=== PATIENT | male | born 1935 | race Caucasian/White ===

== ENCOUNTER 2017-06-06 15:59 | Emergency (ER) | payer MEDICARE, BC ==
[~2017-06-06] VITALS: Ht 182.9 cm; Wt 77.2 kg
[~2017-06-06 15:59] MED LIST: AMLO2.5T OR; ANTI25TA2 PO; BENA10TA OR; OMEP20TA PO; SERT-132 OR; SIMV40TA OR; SYNT112T PO; [UNRECOGNIZED DRUG - CODE] OR
[2017-06-06 16:02] VITALS: BP 146/68; PULSE 62; RESP 18; TEMP 97.6; O2SAT 100
--- NOTE | 2017-06-06 16:45 | PD ---
Physical Exam Time Seen by Provider: 16:42 Narrative 81yo M sent by Urgent care with diagnosis of pneumonia. He had chest x-ray which concluded right midlung lateral lower lung field infiltrates seen and small left lower lung infiltrates. He was given Rocephin 1 g and abuse roll and Atrovent nebulizer treatments in the office, prior to arrival. Patient has been sick for 5-7 days. Denies fevers. Reports shortness of breath. Denies chest pain. Occasional cough. Patient seen in triage. VS reviewed. Awaiting bed placement. See next providers note for final patient disposition. Data Data Last Documented VS Vital Signs Date Time Temp Pulse Resp B/P (MAP) Pulse Ox O2 Delivery O2 Flow Rate FiO2 06/06/17 16:02 97.6 62 18 146/68 (94) 100 MDM Supervised Visit with KATHY: Janae Almeida Jun 06, 2017 16:45
[2017-06-06] MEDS ORDERED: PRED-503 PO (17:05)
[2017-06-06] MEDS ORDERED: VENTAER INH (17:05)
[2017-06-06] MEDS ORDERED: AUGM875T3 PO (17:05)
--- NOTE | 2017-06-06 17:06 | PD ---
HPI Chief Complaint: Respiratory Symptoms Time Seen by Provider: 16:42 Travel History International Travel<30 days: No Contact w/Intl Traveler<30days: No Traveled to known affect area: No History of Present Illness HPI I initially saw this patient in triage. 81yo M sent by Urgent care with diagnosis of pneumonia. He had chest x-ray which concluded right midlung lateral lower lung field infiltrates seen and small left lower lung infiltrates. He was given Rocephin 1 g and albuterol and Atrovent nebulizer treatments in the office, prior to arrival. Patient has been sick for 5-7 days. Denies fevers. Reports shortness of breath, which has resolved after the breathing treatments. Denies chest pain. Occasional cough. Breathing treatments relieved shortness of breath. No known aggravating factors. Symptoms are moderate in severity. Dr. treadwell is primary care provider. History of hypertension, hypercholesterolemia, hypothyroid, CVA. Takes Aggrenox. No known allergies. Has no other medical complaints. No other modifying factors or associated signs and symptoms. PFSH Past Medical History Hx Anticoagulant Therapy: Yes Blood Disorders: No Anxiety: No Depression: Yes Heart Rhythm Problems: No Cancer: No Cardiovascular Problems: Yes High Cholesterol: Yes Chest Pain: No Congestive Heart Failure: No Cerebrovascular Accident: Yes (1997) Diabetes: No Endocrine: Yes Genitourinary: No Hypertension: Yes Immune Disorder: No Psychiatric: Yes Respiratory: No Thyroid Disease: Yes Social History Alcohol Use: No Tobacco Use: No Substance Use: No Allergies-Medications (Allergen,Severity, Reaction): Coded Allergies: No Known Allergies (Unverified Adverse Reaction, Unknown, 06/06/17) Reported Meds & Prescriptions Reported Meds & Active Scripts Active Albuterol Neb (Albuterol Sulfate) 2.5 Mg/0.5 Ml Neb 2.5 Mg NEB Q4-6H PRN Note: The Albuterol Sulfate Inhalation Solution is concentrated and must be diluted. Read complete instructions carefully before using. Deltasone (Prednisone) 20 Mg Tab 40 Mg PO BID 5 Days Ventolin Hfa 18 GM Inh (Albuterol Sulfate) 90 Mcg/Act Aer 2 Puff INH Q4-6H PRN Augmentin (Amoxicillin-Clavulanate) 875-125 Mg Tab 1 Tab PO BID 10 Days Reported Benazepril (Benazepril HCl) 10 Mg Tab 10 Mg PO DAILY Aggrenox (Dipyridamole/Aspirin) 200-25 Mg Cap 1 Cap PO BID Amlodipine (Amlodipine Besylate) 2.5 Mg Tab 2.5 Mg PO DAILY Antivert (Meclizine HCl) 25 Mg Tab 25 Mg PO TID 7 Days Amlodipine Besylate 2.5 mg (Amlodipine Besylate) 2.5 Mg Tab 2.5 Mg OR DAILY Benazepril Hcl (Benazepril HCl) 10 Mg Tab 10 Mg OR DAILY Aggrenox (Dipyridamole/Aspirin) 1 Cap Cap 1 Cap OR BID Simvastatin 40 Mg Tab 40 Mg OR HS Sertraline 50 mg (Sertraline HCl) 50 Mg Tab 50 Mg OR DAILY Omeprazole 20 mg (Omeprazole) 20 Mg Tab 20 Mg PO DAILY Synthroid 112 mcg (Levothyroxine Sodium) 112 Mcg Tab 112 Mcg PO DAILY Review of Systems Except as stated in HPI: all other systems reviewed are Neg Physical Exam Narrative GENERAL: Well-nourished, well-developed elderly, male patient, in no acute distress; afebrile, nontoxic-appearing; very well appearing SKIN: Warm and dry. No rash. HEAD: Atraumatic. Normocephalic. EYES: Pupils equal and round. No scleral icterus. No injection or drainage. ENT: Mucosa pink and moist. EARS: Bilateral pinnae and external canals appear within normal limits. NECK: Trachea midline. No lymphadenopathy. CARDIOVASCULAR: Regular rate and rhythm. No murmur appreciated. RESPIRATORY: No accessory muscle use. Clear to auscultation. Breath sounds equal bilaterally. No retractions or tachypnea. GASTROINTESTINAL: Flat. MUSCULOSKELETAL: No obvious deformities. No clubbing. No cyanosis. No edema. NEUROLOGICAL: Awake and alert. Oriented 3. No obvious cranial nerve deficits. Motor grossly within normal limits. Normal speech. Moves all extremities. 5/5 strength to all extremities. PSYCHIATRIC: Appropriate mood and affect; insight and judgment normal. Data Data Last Documented VS Vital Signs Date Time Temp Pulse Resp B/P (MAP) Pulse Ox O2 Delivery O2 Flow Rate FiO2 06/06/17 16:55 61 16 98 Room Air 06/06/17 16:02 97.6 146/68 (94) Orders Orders Ed Discharge Order (06/06/17 17:07) MDM Medical Decision Making Medical Screen Exam Complete: Yes Emergency Medical Condition: Yes Medical Record Reviewed: Yes Differential Diagnosis Pneumonia, medical clearance Narrative Course 81-year-old male sent by urgent care with pneumonia. Chest x-ray at urgent care concluded: right midlung lateral lower lung field infiltrates seen and small left lower lung infiltrates. Patient is afebrile and nontoxic-appearing. He is in no acute distress. He was given albuterol and Atrovent nebulizers at urgent care prior to arrival. He denies shortness of breath at this time. I discussed the patient with my attending physician, Dr. Kim, and he recommends Augmentin and agrees with Ventolin inhaler and Deltasone. Prescriptions written for home. Instructed patient to follow up with primary care provider. Patient verbalizes understanding and agreement with treatment plan. Patient is medically cleared and stable for discharge. Discussed reasons to return to the emergency department. Patient agrees with treatment plan. The patients vital signs are stable and the patient is stable for outpatient follow-up and treatment. Patient discharged home, stable and in no acute distress. Diagnosis Primary Impression: Pneumonia Qualified Codes: J18.9 - Pneumonia, unspecified organism Referrals: Primary Care Physician Patient Instructions: Community Acquired Pneumonia (ED), General Instructions Additional Instructions: Antibiotics as prescribed Use Albuterol inhaler as prescribed Take oral steroids as prescribed and complete full course [id number] decongestants or antihistamines as directed and as needed for symptom management Drink plenty of fluids to prevent dehydration Use hot air humidifier to decrease cough exacerbation Turn off ceiling fans and sleep with head of bed elevated Avoid triggers such as second hand smoke, dust, known allergens Follow-up with your primary care provider Return to the emergency department immediately with worsening of symptoms Med/Other Pt SpecificInfo: Prescription(s) given Scripts Albuterol Neb (Albuterol Neb) 2.5 Mg/0.5 Ml Neb 2.5 MG NEB Q4-6H Y for SOB/WHEEZING, #1 BOX Note: The Albuterol Sulfate Inhalation Solution is concentrated and must be diluted. Read complete instructions carefully before using. Prov: Janae Castro [employer] 06/06/17 Prednisone (Deltasone) 20 Mg Tab 40 MG PO BID for 5 Days, #20 TAB 0 Refills Prov: Janae Castro [employer] 06/06/17 Albuterol 18 GM Inh (Ventolin Hfa 18 GM Inh) 90 Mcg/Act Aer 2 PUFF INH Q4-6H Y for SOB/WHEEZING, #1 INHALER 0 Refills Prov: Janae CastroP 06/06/17 Amoxicillin-Clavulanate (Augmentin) 875-125 Mg Tab 1 TAB PO BID for Infection for 10 Days, #20 TAB 0 Refills Prov: Janae Castro 06/06/17 Disposition: 01 DISCHARGE HOME Condition: Stable Janae Castro Jun 06, 2017 17:06
[2017-06-06] MEDS ORDERED: AGGR20025 PO (17:09)
[2017-06-06] MEDS ORDERED: AMLO2.5T PO (17:09)
[2017-06-06] MEDS ORDERED: BENA10TA PO (17:09)
[2017-06-06] MEDS ORDERED: ALBU.5I NEB (17:10)
[2017-06-06] MEDS ORDERED: SIMV40TA PO (17:13)
[2017-06-06] MEDS ORDERED: SERT-132 PO (17:13)
[2017-06-06] MEDS ORDERED: SYNT112T PO (17:13)
[2017-06-06] MEDS ORDERED: OMEP20TA93 PO (17:13)
== END 2017-06-06 17:32 | disposition home or self-care (01) ==
LOC: NEPD 15:59
DX: J18.9 Pneumonia, unspecified organism (principal); I10 Essential (primary) hypertension; E78.00 Pure hypercholesterolemia, unspecified; E03.9 Hypothyroidism, unspecified; E07.9 Disorder of thyroid, unspecified; Z86.73 Personal history of transient ischemic attack (TIA), and cerebral infarction without residual deficits; Z79.51 Long term (current) use of inhaled steroids; Z79.899 Other long term (current) drug therapy
CPT/HCPCS: 99284